=== PATIENT | female | born 1955 | race Caucasian/White ===

== ENCOUNTER 2017-09-29 12:00 | Emergency (ER) | payer OTHER ==
[~2017-09-29] VITALS: Ht 165.1 cm; Wt 104.3 kg
--- NOTE | ~2017-09-29 | EKG ---
[facility] [address] ELECTROCARDIOGRAM REPORT Name: MONIQUE MERRITT LESLIE Room #: [facility] [id number] Admission: 09/29/17 Attend Phys: Discharge: Date of : 53 Report #: [id number] THIS REPORT FOR: //name// [facility] ED Test Date: 2017-09-29 Test Time: 12:12:18 Pat Name: MONIQUE MERRITT Department: Room: Gender: F [employer] Apprentice: Mark GARCIA : 1955 Requested By: Patricia Hagen Order Number: [id number] MD: Alan Huizar Measurements Intervals [place] Rate: 82 P: 34 DE: 151 QRS: -17 QRSD: 102 T: 93 QT: 423 QTc: 494 Interpretive Statements Sinus rhythm Borderline left axis deviation Abnormal inferior Q waves Nonspecific T abnormalities, lateral leads Borderline prolonged QT interval Baseline wander in lead(s) V1 No previous ECG available for comparison Electronically Signed On 09-29-2017 13:18:06 ANESTHESIOLOGIST ASSISTANT CERTIFIED by Alan Huizar [email or web address] <ELECTRONICALLY SIGNED> By: Alan Huizar MD 09/29/17 1318 11 11 Alan Huizar MD /XU
[2017-09-29 12:08] VITALS: BP 190/95
[2017-09-29 12:33] LABS: ABSOLUTE NEUTROPHILS 2.6 thou/uL (1.4-8.2); BASOPHILS 1.9 % (0.0-2.0); EOSINOPHILS 2.6 % (0.0-3.0); HEMATOCRIT 39.6 % (37.0-47.0); HEMOGLOBIN 13.4 gm/dL (12.0-15.0); LYMPHOCYTES 29.5 % (24.0-44.0); MCH 29.5 pg (26.0-34.0); MCHC 33.9 g/dL (28.0-37.0); MCV 87.1 fL (80.0-100.0); MONOCYTES 10.3 % (1.0-8.0); PLATELET COUNT 356 thou/uL (150-400); POLYS 55.7 % (36.0-66.0); RBC 4.54 mil/uL (4.20-5.00); RDW 13.7 % (10.5-14.5); WBC 4.7 thou/uL (4.0-11.0)
[2017-09-29 12:44] LABS: ANION GAP 10 mmol/L (7-16); BUN 12 mg/dL (7-18); CALCIUM 9.2 mg/dL (8.5-10.1); CHLORIDE 99 mmol/L (98-107); CO2 27 mmol/L (21-32); CREATININE 0.8 mg/dL (0.6-1.0); GLUCOSE 96 mg/dL (74-106); POTASSIUM 3.1 mmol/L (3.5-5.1); SODIUM 136 mmol/L (136-145)
[2017-09-29 12:52] LABS: TROPONIN-I < 0.04 ng/mL (<0.06)
[2017-09-29] MEDS ORDERED: PRAVACHOL40 MG PO (13:37)
[2017-09-29] MEDS ORDERED: VERAPAMIL ER240 M1 PO (13:37)
[2017-09-29] MEDS ORDERED: IRBESARTAN-HCT1 EACH PO (13:38)
[2017-09-29] MEDS ORDERED: OMEPRAZOLE40 MG PO (13:38)
[2017-09-29] MEDS ORDERED: CYMBALTA60 MG PO (13:39)
[2017-09-29 18:59] VITALS: BP 144/71
[2017-09-29 19:08] VITALS: BP 144/71
== END 2017-09-29 19:08 | disposition home or self-care (01) ==
LOC: ER 12:00 → EROBS 13:16 → ER 13:16
PROVIDERS: Emergency Medicine
DX: R07.9 Chest pain, unspecified (principal); I10 Essential (primary) hypertension; F17.210 Nicotine dependence, cigarettes, uncomplicated; E78.00 Pure hypercholesterolemia, unspecified; Z90.710 Acquired absence of both cervix and uterus